=== PATIENT | female | born 1985 | race Caucasian/White ===

== ENCOUNTER 2018-02-22 13:52 | Emergency (ER) | payer MEDICAID ==
[~2018-02-22] VITALS: Ht 172.7 cm; Wt 97.7 kg
[~2018-02-22 13:52] MED LIST: HYDR-4383 PO
[2018-02-22 13:57] VITALS: BP 116/75
[2018-02-22] MEDS ORDERED: ketorolac trometh inj. 60 MG/2 ML VIAL IM ONE (15:25)
[2018-02-22] MEDS ORDERED: ACET1TAB12 PO (16:22)
== END 2018-02-22 16:32 | disposition home or self-care (01) ==
LOC: ER 13:53
DX: R51 Headache (principal); Z56.0 Unemployment, unspecified; Z88.0 Allergy status to penicillin
CPT/HCPCS: 96372; 99283; J1885

== ENCOUNTER 2018-07-27 05:58 | Day surgery (SDC) | payer MEDICAID ==
[2018-07-24 11:56] LABS: BASOPHILS # (AUTO) 0.1 X10'3 (0-0.2); BASOPHILS % (AUTO) 0.5 % (0-1); EOSINOPHILS # (AUTO) 0.1 X10'3 (0-0.9); EOSINOPHILS % (AUTO) 0.8 % (0-6); LYMPHOCYTES # (AUTO) 3.7 X10'3 (1.1-4.8); LYMPHOCYTES % (AUTO) 28.5 % (21-51); MEAN CORPUSCULAR HEMOGLOBIN 30.9 PG (27.0-31.0); MEAN CORPUSCULAR HGB CONC 34.1 g/dL (33.0-36.5); MEAN CORPUSCULAR VOLUME 90.5 FL (78-98); MEAN PLATELET VOLUME 8.1 FL (7.4-10.4); MONOCYTES # (AUTO) 0.7 X10'3 (0-0.9); MONOCYTES % (AUTO) 5.5 % (2-12); NEUTROPHILS # (AUTO) 8.3 X10'3 (1.8-7.7); NEUTROPHILS % (AUTO) 64.7 % (42-75); PRE OP HEMATOCRIT 44.1 % (35.0-45.0); PRE OP PLATELET COUNT 312 X10'3 (140-440); RED BLOOD COUNT 4.87 X10'6 (4.20-5.60); RED CELL DISTRIBUTION WIDTH 13.6 % (11.5-14.5)
[2018-07-24 11:58] LABS: HCG SERUM QL NEGATIVE
[2018-07-24 12:00] LABS: ALBUMIN 4.1 G/DL (3.4-5.0); ALBUMIN/GLOBULIN RATIO 1.1 (1.1-1.5); ALKALINE PHOSPHATASE 62 IU/L (46-116); BLOOD UREA NITROGEN 13 MG/DL (7-18); BUN/CREATININE RATIO 13.5 (6.6-38.0); CALCIUM 9.2 MG/DL (8.5-10.1); CHLORIDE 105 MMOL/L (99-107); CREATININE 0.96 MG/DL (0.40-0.90); PRE OP ALT 31 U/L (30-65); PRE OP ANION GAP 8 (8-16); PRE OP AST 33 U/L (10-37); PRE OP BILIRUB, TOTAL 0.4 MG/DL (0.0-1.0); PRE OP GLUCOSE 102 MG/DL (70-104); PRE OP POTASSIUM 3.6 MMOL/L (3.4-5.1); PRE OP SODIUM 138 MMOL/L (135-145); TOTAL CARBON DIOXIDE 24.9 MMOL/L (24-32); TOTAL PROTEIN 7.8 G/DL (6.4-8.2); eGFR 66 ML/MIN
[~2018-07-27] VITALS: Ht 172.7 cm; Wt 103.0 kg
[~2018-07-27 05:58] MED LIST changes: -HYDR-4383 PO; +MEDR150V IM; +albuterol 2.5 MG/3 ML nebule NEB ONE; +famotidine 20mg tablet PO ONE; +ringers solution, lacted 1,000 ML IV SCH
[2018-07-27 06:00] VITALS: BP 116/69
[2018-07-27] MEDS ORDERED: fentaNYL/PF 50MCG/1 ML 2ML syringe ONE (07:24)
[2018-07-27] MEDS ORDERED: midazolam 2 mg/2 ml injection ONE (07:25)
[2018-07-27] MEDS ORDERED: propofol inj 20 ML IV ONE (07:25)
[2018-07-27] MEDS ORDERED: LIDOcaine 2% (20mg/ml) 5ml vial ONE (07:25)
[2018-07-27] MEDS ORDERED: rocuronium 10mg/ml inj IV ONE (07:25)
[2018-07-27] MEDS ORDERED: ringers solution, lacted 1,000 ML IV SCH (07:44)
[2018-07-27] MEDS ORDERED: proCHLORperazine 10 MG/2 ml inj IV PRN (07:45)
[2018-07-27] MEDS ORDERED: meperidine/PF 25mg/ml syringe IV PRN ×3 (07:45)
[2018-07-27] MEDS ORDERED: morphine 4 MG/ML inj SYRINge IV PRN ×2 (07:45)
[2018-07-27] MEDS ORDERED: ondansetron/PF 4mg/2ml inj IV PRN (07:45)
[2018-07-27] MEDS ORDERED: sevoflurane 250ml liquid IH ONE (08:37)
[2018-07-27] MEDS ORDERED: neostigmine methylsulfate 1 MG/ML 10ml vial ONE (08:51)
[2018-07-27] MEDS ORDERED: dexamethasone sod phosphate 4mg/ml inj. ONE (08:51)
[2018-07-27] MEDS ORDERED: ondansetron/PF 4mg/2ml inj ONE (08:51)
[2018-07-27] MEDS ORDERED: glycopyrrolate 0.2mg/ml inj ONE (08:51)
[2018-07-27 09:20] VITALS: BP 98/70
[2018-07-27] MEDS ORDERED: esmolol inj. 10 ML IV ONE (09:20)
[2018-07-27] MEDS ORDERED: metoprolol tartrate 1mg/ml inj IV ONE (09:20)
--- NOTE | 2018-07-27 09:20 | NUR ---
Received from OR via [facility] , accompanied by Anesthesiologist ANDREW and report given by Anesthesiolgist. PATIENT WITH VSS. DENIES PAIN. ONE UMBILICAL BANDAID PRESENT AND A BETO PAD IN PLACE. NO DRAINAGE TO EITHER. 20G PIV IN RIGHT HAND AND RUNNING LR AT 100. 10L MASK ON WITH 97% SATURATIONS. Addendum: 07/27/18 at 0964 by Aman Taylor RN, RN Amended: Links added.
[2018-07-27 09:30] VITALS: BP 104/41
[2018-07-27 09:40] VITALS: BP 92/52
[2018-07-27 09:50] VITALS: BP 93/68
[2018-07-27 10:00] VITALS: BP 106/67
--- NOTE | 2018-07-27 10:27 | NUR ---
PATIENT A&OX4, DENIES PAIN, V/S WNL, NEUROVASCULAR CHECKS INTACT, 20G PIV LUE D/C WITH NO COMPLICATIONS OBSERVED, SCD OFF, 1 BANDAID TO LAP SIGHTS OF ABDOMEN CDI.. I HAVE REVIEWED D/C INSTRUCTIONS WITH PATIENT AND FAMILY AND THEY HAVE VERBALIZED UNDERSTANDING. PATIENT D/C HOME WITH FAMILY TO TRANSPORT AND ALL BELONGINGS.. Addendum: 07/27/18 at 1032 by Aman Taylor RN, RN Amended: Links added.
== END 2018-07-27 10:10 | disposition home or self-care (01) ==
LOC: PAS 05:58
PROVIDERS: ATTEND Obstetrics & Gynecology
DX: Z30.2 Encounter for sterilization (principal); F17.210 Nicotine dependence, cigarettes, uncomplicated; Z88.0 Allergy status to penicillin; Z98.890 Other specified postprocedural states
CPT/HCPCS: 36415; 58670; 80053; 82948; 84703; 85025; J1100; J2001; J2175; J2250; J2405; J2704; J2710; J3010; A7000; J3490; J7120

== ENCOUNTER 2018-09-28 20:40 | Emergency (ER) | payer MEDICAID ==
[~2018-09-28] VITALS: Ht 172.7 cm; Wt 99.0 kg
[~2018-09-28 20:40] MED LIST changes: -albuterol 2.5 MG/3 ML nebule NEB ONE; -famotidine 20mg tablet PO ONE; -ringers solution, lacted 1,000 ML IV SCH
[2018-09-28 20:47] VITALS: BP 128/76
[2018-09-28] MEDS ORDERED: IBUP-1984 PO (22:23)
== END 2018-09-28 22:40 | disposition home or self-care (01) ==
LOC: ER 20:41
DX: M26.622 Arthralgia of left temporomandibular joint (principal); H92.02 Otalgia, left ear; Z56.0 Unemployment, unspecified; Z88.0 Allergy status to penicillin; Z88.6 Allergy status to analgesic agent
CPT/HCPCS: 99282

== ENCOUNTER 2019-01-19 23:42 | Emergency (ER) | payer MEDICAID ==
[~2019-01-19] VITALS: Ht 172.7 cm; Wt 100.0 kg
[2019-01-20 00:08] VITALS: BP 121/62
[2019-01-20] MEDS ORDERED: ACET-3067 PO (01:26)
[2019-01-20] MEDS ORDERED: HYDROcodone/acetaminophen 5mg/325mg tablet PO ONE (01:30)
== END 2019-01-20 01:53 | disposition home or self-care (01) ==
LOC: ER 23:43
DX: S60.221A Contusion of right hand, initial encounter (principal); Z56.0 Unemployment, unspecified; Z88.6 Allergy status to analgesic agent; Z88.0 Allergy status to penicillin; F17.210 Nicotine dependence, cigarettes, uncomplicated; W50.0XXA Accidental hit or strike by another person, initial encounter; Y93.89 Activity, other specified; Y92.89 Other specified places as the place of occurrence of the external cause; Y99.8 Other external cause status
CPT/HCPCS: 73130; 99283

== ENCOUNTER 2019-09-16 22:22 | Emergency (ER) | payer MEDICAID ==
[~2019-09-16] VITALS: Ht 175.3 cm; Wt 100.0 kg
[2019-09-16 22:54] LABS: BASOPHILS # (AUTO) 0.1 X10'3 (0-0.2); EOSINOPHILS # (AUTO) 0.2 X10'3 (0-0.9); EOSINOPHILS % (AUTO) 1.3 % (0-6); MONOCYTES # (AUTO) 0.7 X10'3 (0-0.9); RED BLOOD COUNT 4.54 X10'6 (4.20-5.60); WHITE BLOOD COUNT 12.6 X10'3 (4.5-11.0)
[2019-09-16 22:55] LABS: BASOPHILS % (AUTO) 0.5 % (0-1); HEMATOCRIT 42.4 % (35.0-45.0); HEMOGLOBIN 14.6 g/dl (12.0-16.0); LYMPHOCYTES % (AUTO) 47.6 % (21-51); MEAN CORPUSCULAR HEMOGLOBIN 32.2 PG (27.0-31.0); MEAN CORPUSCULAR HGB CONC 34.4 g/dL (33.0-36.5); MEAN CORPUSCULAR VOLUME 93.4 FL (78-98); MONOCYTES % (AUTO) 5.8 % (2-12); NEUTROPHILS # (AUTO) 5.6 X10'3 (1.8-7.7); NEUTROPHILS % (AUTO) 44.8 % (42-75); PLATELET COUNT 303 X10'3 (140-440); RED CELL DISTRIBUTION WIDTH 13.6 % (11.5-14.5)
[2019-09-16 23:29] LABS: ALBUMIN 3.7 G/DL (3.4-5.0); ALBUMIN/GLOBULIN RATIO 1.1 (1.1-1.5); ALKALINE PHOSPHATASE 64 IU/L (46-116); ANION GAP 14 (8-16); BILIRUBIN,TOTAL 0.2 MG/DL (0.1-1.0); BLOOD UREA NITROGEN 9 MG/DL (7-18); BUN/CREATININE RATIO 10.2 (6.6-38.0); CALCIUM 8.5 MG/DL (8.5-10.1); CHLORIDE 107 MMOL/L (99-107); CREATININE 0.88 MG/DL (0.40-0.90); LIPASE 209 U/L (73-393); SODIUM 142 MMOL/L (135-145); TOTAL CARBON DIOXIDE 20.8 MMOL/L (24-32); TOTAL PROTEIN 7.2 G/DL (6.4-8.2); eGFR 73 ML/MIN
[2019-09-16 23:37] LABS: GLUCOSE 114 MG/DL (70-104); POTASSIUM 3.4 MMOL/L (3.5-5.1)
[2019-09-16 23:51] LABS: ALANINE AMINOTRANSFERASE 15 U/L (12-78); ASPARTATE AMINO TRANSFERASE 44 U/L (10-37)
[2019-09-16 23:58] LABS: CLARITY,URINE CLEAR (Clear); COLOR,URINE STRAW (Yellow); GLUCOSE, URINE NEGATIVE (Neg); KETONES,URINE NEGATIVE (Neg); LEUKOCYTE ESTERASE ,URINE NEGATIVE (Neg); NITRITES, URINE NEGATIVE (Neg); OCCULT BLOOD,URINE TRACE-INTACT (Neg); PROTEIN,URINE NEGATIVE (Neg); URINE HCG NEGATIVE (NEG); UROBILINOGEN,URINE 0.2 E.U/dL (0.2-1.0)
[2019-09-17 00:03] LABS: UA COLLECTION TYPE CLN CATCH MIDSTREAM
[2019-09-17 00:05] LABS: BACTERIA,URINE NONE SEEN /HPF (Neg); RBC,URINE NONE SEEN /HPF (0-2); SQUAMOUS EPITHELIAL CELL,UR FEW /LPF (FEW); WBC,URINE 0-4 /HPF (0-4)
[2019-09-17 00:06] LABS: SPERM FEW /HPF
[2019-09-17] MEDS ORDERED: normal saline 1000ML IV soln IVB ONE (00:35)
[2019-09-17] MEDS ORDERED: iohexol 300mg/ml 100ml inj. ONE (00:40)
[2019-09-17] MEDS ORDERED: magnesium oxide 400mg tablet PO ONE (00:40)
[2019-09-17] MEDS ORDERED: potassium Cl 20 mEq SR tablet PO ONE (00:40)
[2019-09-17 01:09] LABS: MAGNESIUM 2.1 MG/DL (1.5-2.4)
[2019-09-17] MEDS ORDERED: metroNIDAZOLE 500mg tablet PO ONE (01:15)
[2019-09-17] MEDS ORDERED: ciprofloxacin 250mg tablet PO ONE (01:15)
[2019-09-17] MEDS ORDERED: LACT1CAP60 PO (01:32)
[2019-09-17] MEDS ORDERED: CIPR-230 PO (01:32)
[2019-09-17] MEDS ORDERED: METR-159 PO (01:32)
[2019-09-17] MEDS ORDERED: ciprofloxacin 250mg tablet PO STA (01:32)
[2019-09-17 02:04] VITALS: BP 112/89
== END 2019-09-17 02:13 | disposition home or self-care (01) ==
LOC: ER 22:22
DX: K52.9 Noninfective gastroenteritis and colitis, unspecified (principal); E87.6 Hypokalemia; R10.12 Left upper quadrant pain; Z72.89 Other problems related to lifestyle; Z88.6 Allergy status to analgesic agent; Z88.0 Allergy status to penicillin; Z79.2 Long term (current) use of antibiotics; Z79.899 Other long term (current) drug therapy
CPT/HCPCS: 36415; 74177; 80053; 81001; 81025; 83690; 83735; 85025; 96360; 99284; J7030; Q9967; 81003; 96361; 99285; J3490

== ENCOUNTER 2019-10-16 21:03 | Emergency (ER) | payer MEDICAID ==
[~2019-10-16] VITALS: Ht 172.7 cm; Wt 100.0 kg
[~2019-10-16 21:03] MED LIST changes: +CIPR-230 PO; +LACT1CAP60 PO
[2019-10-16 22:04] LABS: BASOPHILS # (AUTO) 0.1 X10'3 (0-0.2); BASOPHILS % (AUTO) 0.6 % (0-1); EOSINOPHILS # (AUTO) 0.1 X10'3 (0-0.9); EOSINOPHILS % (AUTO) 1.2 % (0-6); HEMATOCRIT 40.8 % (35.0-45.0); LYMPHOCYTES # (AUTO) 3.8 X10'3 (1.1-4.8); MEAN CORPUSCULAR HEMOGLOBIN 31.4 PG (27.0-31.0); MEAN CORPUSCULAR HGB CONC 34.2 g/dL (33.0-36.5); MEAN PLATELET VOLUME 8.2 FL (7.4-10.4); MONOCYTES # (AUTO) 0.8 X10'3 (0-0.9); MONOCYTES % (AUTO) 7.5 % (2-12); NEUTROPHILS # (AUTO) 6.1 X10'3 (1.8-7.7); NEUTROPHILS % (AUTO) 55.7 % (42-75); PLATELET COUNT 259 X10'3 (140-440); RED BLOOD COUNT 4.44 X10'6 (4.20-5.60); RED CELL DISTRIBUTION WIDTH 13.3 % (11.5-14.5)
[2019-10-16 22:19] LABS: ALANINE AMINOTRANSFERASE 22 U/L (12-78); ALBUMIN 3.6 G/DL (3.4-5.0); ALBUMIN/GLOBULIN RATIO 1.1 (1.1-1.5); ALKALINE PHOSPHATASE 55 IU/L (46-116); ANION GAP 15 (8-16); ASPARTATE AMINO TRANSFERASE 29 U/L (10-37); BILIRUBIN,TOTAL 0.3 MG/DL (0.1-1.0); BLOOD UREA NITROGEN 9 MG/DL (7-18); BUN/CREATININE RATIO 10.5 (6.6-38.0); CALCIUM 8.6 MG/DL (8.5-10.1); CHLORIDE 107 MMOL/L (99-107); CREATININE 0.86 MG/DL (0.40-0.90); GLUCOSE 93 MG/DL (70-104); LIPASE 237 U/L (73-393); POTASSIUM 3.1 MMOL/L (3.5-5.1); SODIUM 142 MMOL/L (135-145); TOTAL CARBON DIOXIDE 20.2 MMOL/L (24-32); eGFR 75 ML/MIN
[2019-10-16] MEDS ORDERED: sucralfate 1gm/10ml UD suspension PO STA (22:46)
[2019-10-16] MEDS ORDERED: mag hydrox/Alum hydrox/simeth 30ml oral suspension PO ONE (22:50)
[2019-10-16] MEDS ORDERED: LIDOcaine Viscous 15ml cup MM ONE (22:50)
[2019-10-16] MEDS ORDERED: ONDA4TAB6 PO (22:58)
[2019-10-16 23:11] VITALS: BP 121/76
== END 2019-10-16 23:14 | disposition home or self-care (01) ==
LOC: ER 21:03
DX: R11.2 Nausea with vomiting, unspecified (principal); K22.6 Gastro-esophageal laceration-hemorrhage syndrome; G89.29 Other chronic pain; Z79.2 Long term (current) use of antibiotics; Z79.899 Other long term (current) drug therapy
CPT/HCPCS: 36415; 80053; 83690; 85025; 99284

== ENCOUNTER 2021-05-09 18:41 | Emergency (ER) | payer MEDICAID ==
[~2021-05-09] VITALS: Ht 172.7 cm; Wt 90.0 kg
[2021-05-09 18:41] VITALS: BP 140/102
[~2021-05-09 18:41] MED LIST changes: -CIPR-230 PO; +ONDA4TAB6 PO
[2021-05-09] MEDS ORDERED: ALBU18HF2 INH (19:16)
--- NOTE | 2021-05-09 20:20 | NUR ---
Pt given and understands d/c instructions. Ambulatory with a steady gait.
== END 2021-05-09 20:20 | disposition home or self-care (01) ==
LOC: ER 18:41
DX: U07.1 COVID-19 (principal); R10.84 Generalized abdominal pain; R50.9 Fever, unspecified; R09.89 Other specified symptoms and signs involving the circulatory and respiratory systems; R19.7 Diarrhea, unspecified; F17.200 Nicotine dependence, unspecified, uncomplicated; Z72.89 Other problems related to lifestyle; Z79.899 Other long term (current) drug therapy
CPT/HCPCS: 87635; 99283; C9803

== ENCOUNTER 2022-09-13 19:52 | Inpatient (IN) | payer MEDICAID ==
[~2022-09-13] VITALS: Ht 172.7 cm; Wt 104.5 kg
[~2022-09-13 19:52] MED LIST changes: +ALBU18HF2 INH
[2022-09-13 20:47] LABS: BASOPHILS # (AUTO) 0.1 X10'3 (0-0.2); EOSINOPHILS # (AUTO) 0.1 X10'3 (0-0.9); HEMATOCRIT 49.2 % (35.0-45.0); WHITE BLOOD COUNT 19.3 X10'3 (4.5-11.0)
[2022-09-13 20:48] LABS: BASOPHILS % (AUTO) 0.4 % (0-1); EOSINOPHILS % (AUTO) 0.4 % (0-6); LYMPHOCYTES # (AUTO) 2.9 X10'3 (1.1-4.8); MEAN CORPUSCULAR HEMOGLOBIN 34.5 PG (27.0-31.0); MEAN CORPUSCULAR HGB CONC 34.5 g/dL (33.0-36.5); MEAN PLATELET VOLUME 7.9 FL (7.4-10.4); MONOCYTES # (AUTO) 1.4 X10'3 (0-0.9); MONOCYTES % (AUTO) 7.1 % (2-12); NEUTROPHILS # (AUTO) 14.9 X10'3 (1.8-7.7); NEUTROPHILS % (AUTO) 77.1 % (42-75); PLATELET COUNT 289 X10'3 (140-440); RED BLOOD COUNT 4.93 X10'6 (4.20-5.60); RED CELL DISTRIBUTION WIDTH 14.7 % (11.5-14.5)
[2022-09-13 20:51] LABS: CLARITY,URINE SLIGHTLY CLOUDY (Clear); GLUCOSE, URINE NEGATIVE (Neg); KETONES,URINE TRACE mg/dl (Neg); LEUKOCYTE ESTERASE ,URINE NEGATIVE (Neg); NITRITES, URINE NEGATIVE (Neg); OCCULT BLOOD,URINE LARGE (Neg); PROTEIN,URINE TRACE mg/dl (Neg); URINE HCG NEGATIVE (NEG)
[2022-09-13 20:56] LABS: COLOR,URINE DARK YELLOW (Yellow); UA COLLECTION TYPE CLN CATCH MIDSTREAM
[2022-09-13 20:59] LABS: ALANINE AMINOTRANSFERASE 47 U/L (12-78); ALBUMIN 3.7 G/DL (3.4-5.0); ALBUMIN/GLOBULIN RATIO 0.9 (1.1-1.5); ALKALINE PHOSPHATASE 85 IU/L (46-116); ANION GAP 8 (8-16); ASPARTATE AMINO TRANSFERASE 59 U/L (10-37); BILIRUBIN,TOTAL 1.2 MG/DL (0.1-1.0); BLOOD UREA NITROGEN 7 MG/DL (7-18); BUN/CREATININE RATIO 7.7 (10.0-20.0); CHLORIDE 102 MMOL/L (99-107); CREATININE 0.91 MG/DL (0.40-0.90); GLUCOSE 130 MG/DL (70-104); LIPASE 76 U/L (73-393); POTASSIUM 3.8 MMOL/L (3.5-5.1); SODIUM 134 MMOL/L (135-145); TOTAL CARBON DIOXIDE 24.5 MMOL/L (24-32); TOTAL PROTEIN 7.6 G/DL (6.4-8.2); eGFR 69 ML/MIN
[2022-09-13 21:00] LABS: WBC,URINE 0-4 /HPF (0-4)
[2022-09-13 21:03] LABS: BACTERIA,URINE 2+ /HPF (Neg); RBC,URINE 50-100 /HPF (0-2); SQUAMOUS EPITHELIAL CELL,UR MANY /LPF (FEW)
[2022-09-13 21:04] LABS: MUCUS STRANDS FEW /LPF (Neg); TRANSITIONAL EPI CELLS,URINE FEW /HPF
[2022-09-13] MEDS ORDERED: iohexol 300mg/ml 100ml inj. ONE (23:13)
[2022-09-14] MEDS ORDERED: acetaminophen 1,000mg/100ml IV 100 ML IV STA (02:23)
[2022-09-14] MEDS ORDERED: ondansetron/PF 4mg/2ml inj IV ONE (02:25)
[2022-09-14] MEDS ORDERED: metroNIDAZOLE-Flagyl 500mg/NS 100 ML IV ONE (04:00)
[2022-09-14] MEDS ORDERED: nicotine 14mg patch - 24hr TD ONE (04:05)
[2022-09-14] MEDS ORDERED: NO HOME MEDS (04:36)
[2022-09-14] MEDS ORDERED: morphine 2 MG/ML inj. syringe IV PRN (04:55)
[2022-09-14] MEDS ORDERED: magnesium Cl slow-release 64mg tablet PO PRN (04:55)
[2022-09-14] MEDS ORDERED: ondansetron/PF 4mg/2ml inj IV PRN (04:55)
[2022-09-14] MEDS ORDERED: potassium Cl 40MEQ/1/2NS 520ml 520 ML IV PRN (04:55)
[2022-09-14] MEDS ORDERED: magnesium hydroxide 30ml (MOM) UD suspension PO PRN (04:55)
[2022-09-14] MEDS ORDERED: magnesium 4gm in 100ml NS 100 ML IV PRN (04:55)
[2022-09-14] MEDS ORDERED: mag hydrox/Alum hydrox/simeth 30ml oral suspension PO PRN (04:55)
[2022-09-14] MEDS ORDERED: magnesium 2GM in 50ml NS 50 ML IV PRN (04:55)
[2022-09-14] MEDS ORDERED: potassium Cl 20 mEq SR tablet PO PRN (04:55)
[2022-09-14] MEDS ORDERED: LORazepam 1 MG tablet PO PRN (05:00)
[2022-09-14] MEDS ORDERED: LORazepam 2 mg/ml vial IV PRN (05:00)
[2022-09-14] MEDS: normal saline 1000ml 1,000 ML IV SCH ×2 (05:10→16:09)
[2022-09-14] MEDS ORDERED: ciprofloxacin lact 400MG/200ML 200 ML IV SCH (08:00)
[2022-09-14] MEDS: K and/or MAG REPLACEMENT MC SCH ×2 (08:00→20:00)
[2022-09-14] MEDS: docusate sod 100mg capsule PO SCH ×2 (08:00→20:00)
[2022-09-14 08:06] LABS: MAGNESIUM 2.1 MG/DL (1.5-2.4); POTASSIUM 3.1 MMOL/L (3.5-5.1)
[2022-09-14] MEDS: potassium Cl 20 mEq SR tablet PO PRN ×3 (08:28→19:42)
[2022-09-14] MEDS: heparin, porcine 5000 units/ml vial SQ SCH ×2 (08:30→19:44)
[2022-09-14 09:06] LABS: BASOPHILS % (AUTO) 0.3 % (0-1); EOSINOPHILS # (AUTO) 0.1 X10'3 (0-0.9); EOSINOPHILS % (AUTO) 0.5 % (0-6); HEMATOCRIT 47.9 % (35.0-45.0); HEMOGLOBIN 16.3 g/dl (12.0-16.0); LYMPHOCYTES # (AUTO) 3.1 X10'3 (1.1-4.8); LYMPHOCYTES % (AUTO) 18.3 % (21-51); MEAN CORPUSCULAR HEMOGLOBIN 34.7 PG (27.0-31.0); MEAN CORPUSCULAR HGB CONC 34.1 g/dL (33.0-36.5); MEAN CORPUSCULAR VOLUME 101.5 FL (78-98); MEAN PLATELET VOLUME 8.5 FL (7.4-10.4); MONOCYTES % (AUTO) 6.1 % (2-12); NEUTROPHILS # (AUTO) 12.7 X10'3 (1.8-7.7); NEUTROPHILS % (AUTO) 74.8 % (42-75); PLATELET COUNT 240 X10'3 (140-440); RED BLOOD COUNT 4.72 X10'6 (4.20-5.60); RED CELL DISTRIBUTION WIDTH 14.4 % (11.5-14.5)
[2022-09-14] MEDS: ciprofloxacin lact 400MG/200ML 200 ML IV SCH ×2 (09:42→19:40)
--- NOTE | 2022-09-14 12:00 | NUR ---
REPORT GIVEN TO RN PIEDAD, PT GOING TO ROOM 1693S
[2022-09-14] MEDS: metroNIDAZOLE-Flagyl 500mg/NS 100 ML IV SCH ×3 (12:42→23:50)
[2022-09-14 12:45] VITALS: BP 116/67
[2022-09-14 15:00] VITALS: BP 137/87
[2022-09-14] MEDS: acetaminophen 325mg tablet PO PRN ×2 (15:56→23:56)
[2022-09-14 19:00] VITALS: BP 137/78
[2022-09-15] VITALS: BP 134/82
[2022-09-15] MEDS: normal saline 1000ml 1,000 ML IV SCH ×2 (03:23→10:55)
[2022-09-15 06:00] VITALS: BP 134/74
--- NOTE | 2022-09-15 06:38 | NUR ---
patient c/o abdominal pain early in shift medicated x2 with tylenol, with good effect. Up ad Thong in room. Slept alot of shift. report given to Shelbie SNOWDEN
--- NOTE | 2022-09-15 06:55 | NUR ---
Patient in room PCU 3023. I have received report from ISI Oneil and had the opportunity to ask questions and assume patient care.
[2022-09-15] MEDS: docusate sod 100mg capsule PO SCH (07:28)
[2022-09-15] MEDS: heparin, porcine 5000 units/ml vial SQ SCH (07:28)
[2022-09-15] MEDS: ciprofloxacin lact 400MG/200ML 200 ML IV SCH (07:42)
[2022-09-15 07:43] LABS: BASOPHILS % (AUTO) 0.3 % (0-1); EOSINOPHILS # (AUTO) 0.1 X10'3 (0-0.9); EOSINOPHILS % (AUTO) 0.6 % (0-6); HEMOGLOBIN 14.9 g/dl (12.0-16.0); LYMPHOCYTES # (AUTO) 1.9 X10'3 (1.1-4.8); LYMPHOCYTES % (AUTO) 13.6 % (21-51); MEAN CORPUSCULAR HEMOGLOBIN 34.2 PG (27.0-31.0); MEAN CORPUSCULAR HGB CONC 33.8 g/dL (33.0-36.5); MEAN CORPUSCULAR VOLUME 101.2 FL (78-98); MEAN PLATELET VOLUME 8.4 FL (7.4-10.4); MONOCYTES # (AUTO) 1.1 X10'3 (0-0.9); MONOCYTES % (AUTO) 8.1 % (2-12); NEUTROPHILS # (AUTO) 10.7 X10'3 (1.8-7.7); NEUTROPHILS % (AUTO) 77.4 % (42-75); PLATELET COUNT 235 X10'3 (140-440); RED BLOOD COUNT 4.35 X10'6 (4.20-5.60); RED CELL DISTRIBUTION WIDTH 14.9 % (11.5-14.5); WHITE BLOOD COUNT 13.8 X10'3 (4.5-11.0)
[2022-09-15 07:58] LABS: ALANINE AMINOTRANSFERASE 84 U/L (12-78); ALBUMIN 2.7 G/DL (3.4-5.0); ALBUMIN/GLOBULIN RATIO 0.8 (1.1-1.5); ALKALINE PHOSPHATASE 76 IU/L (46-116); ANION GAP 8 (8-16); ASPARTATE AMINO TRANSFERASE 86 U/L (10-37); BLOOD UREA NITROGEN 5 MG/DL (7-18); BUN/CREATININE RATIO 6.8 (10.0-20.0); CALCIUM 8.6 MG/DL (8.5-10.1); CHLORIDE 106 MMOL/L (99-107); CREATININE 0.74 MG/DL (0.40-0.90); GLUCOSE 103 MG/DL (70-104); MAGNESIUM 2.3 MG/DL (1.5-2.4); SODIUM 138 MMOL/L (135-145); TOTAL CARBON DIOXIDE 24.4 MMOL/L (24-32); TOTAL PROTEIN 6.3 G/DL (6.4-8.2); eGFR 87 ML/MIN
[2022-09-15] MEDS: K and/or MAG REPLACEMENT MC SCH (08:05)
[2022-09-15] MEDS: metroNIDAZOLE-Flagyl 500mg/NS 100 ML IV SCH (10:30)
[2022-09-15 11:00] VITALS: BP 128/85
[2022-09-15] MEDS ORDERED: CIPR-202 PO (12:12)
[2022-09-15] MEDS ORDERED: METR-159 PO (12:12)
[2022-09-15 13:51] LABS: HBSAG SCREEN Negative (Negative); HEP B CORE AB, TOT Negative (Negative)
--- NOTE | 2022-09-15 13:58 | NUR ---
PAGER ID: [phone] MESSAGE: Rasheeda Gudino [id number]. Patient tolerated lunch fine, sending her home. thank you, Jahaira [phone].
--- NOTE | 2022-09-15 14:59 | NUR ---
PAGER ID: [phone] MESSAGE: Rasheeda Gudino [id number]. Pt requesting work release. Can I bring it over to be signed? Thank you, Jahaira [phone].
--- NOTE | 2022-09-15 15:37 | NUR ---
Patient stable and appropriate for discharge. All discharge instructions given to patient, verbalized understanding. IV removed, canula intact. Patient was given work release note with discharge information. Patient accompanied to lobby by family members and taken home in private vehicle.
[2022-09-18] MEDS ORDERED: thiamine 100mg tablet PO SCH (08:00)
== END 2022-09-15 14:50 | disposition home or self-care (01) | DRG 244 ==
LOC: ER 19:52 → ED HOLD 09-14 04:58 → PCU 3S 09-14 12:20
PROVIDERS: ADMIT Internal Medicine; ATTEND Family Medicine
PROC: BW211ZZ Computerized Tomography (CT Scan) of Abdomen and Pelvis using Low Osmolar Contrast (ICD-10-PCS; principal; 2022-09-14)
DX: K57.20 Diverticulitis of large intestine with perforation and abscess without bleeding (principal); F17.200 Nicotine dependence, unspecified, uncomplicated; Z86.16 Personal history of COVID-19; Z98.51 Tubal ligation status
CPT/HCPCS: 36415; 74177; 80053; 81001; 81025; 83690; 83735; 84132; 85025; 86704; 86705; 86706; 87081; 87340; 99285; G0378; J0131; J0744; J1644; J2270; J2405; J3490; J7030; Q9967

== ENCOUNTER 2023-09-04 13:09 | Emergency (ER) | payer MEDICAID ==
[~2023-09-04] VITALS: Ht 172.7 cm; Wt 106.9 kg
[2023-09-04 13:11] VITALS: TEMP 97.5
[2023-09-04 14:11] LABS: BASOPHILS % (AUTO) 0.3 % (0-1); EOSINOPHILS # (AUTO) 0.1 X10'3 (0-0.9); HEMOGLOBIN 14.6 g/dl (12.0-16.0); LYMPHOCYTES # (AUTO) 4.1 X10'3 (1.1-4.8); LYMPHOCYTES % (AUTO) 31.9 % (21-51); MEAN CORPUSCULAR HEMOGLOBIN 29.9 PG (27.0-31.0); MEAN CORPUSCULAR HGB CONC 33.2 g/dL (33.0-36.5); MEAN CORPUSCULAR VOLUME 90.1 FL (78-98); MEAN PLATELET VOLUME 8.1 FL (7.4-10.4); MONOCYTES # (AUTO) 0.7 X10'3 (0-0.9); MONOCYTES % (AUTO) 5.4 % (2-12); NEUTROPHILS % (AUTO) 61.4 % (42-75); PLATELET COUNT 363 X10'3 (140-440); RED BLOOD COUNT 4.88 X10'6 (4.20-5.60); RED CELL DISTRIBUTION WIDTH 13.4 % (11.5-14.5)
[2023-09-04 14:25] LABS: ALBUMIN 3.8 G/DL (3.4-5.0); ANION GAP 8 (8-16); BLOOD UREA NITROGEN 10 MG/DL (7-18); BUN/CREATININE RATIO 12.2 (10.0-20.0); CALCIUM 8.6 MG/DL (8.5-10.1); CHLORIDE 103 MMOL/L (99-107); CREATININE 0.82 MG/DL (0.40-0.90); GLUCOSE 133 MG/DL (70-104); POTASSIUM 3.8 MMOL/L (3.5-5.1); PRO BRAIN NATRIURETIC PEPTIDE 45 PG/ML (0-125); SODIUM 137 MMOL/L (135-145); eCRCL 92 ML/MIN; eGFR 77 ML/MIN
[2023-09-04 17:38] VITALS: RESP 16
[2023-09-04 18:43] VITALS: BP 98/55; PULSE 70; O2SAT 99
== END 2023-09-04 18:45 | disposition home or self-care (01) ==
LOC: ER 13:09
DX: R55 Syncope and collapse (principal); R51.9 Headache, unspecified
CPT/HCPCS: 36415; 70450; 71045; 80048; 83880; 84484; 85025; 93005; 99284; 99285

== ENCOUNTER → 2023-09-29 | Outpatient (CLI) | payer MEDICAID | END | disposition home or self-care (01) | LOC: CARD DIAG 11:30 | PROVIDERS: ATTEND Family Medicine | DX: I08.0 Rheumatic disorders of both mitral and aortic valves (principal); R56.9 Unspecified convulsions | CPT/HCPCS: 93306 ==

== ENCOUNTER 2023-10-25 08:47 | Outpatient (CLI) | payer MEDICAID | END 2023-10-25 23:59 | disposition home or self-care (01) | LOC: RAD 08:47 | PROVIDERS: ATTEND Physician Assistant | DX: N28.1 Cyst of kidney, acquired (principal); R16.1 Splenomegaly, not elsewhere classified; K76.0 Fatty (change of) liver, not elsewhere classified; R10.31 Right lower quadrant pain | CPT/HCPCS: 76700; 76705 ==

== ENCOUNTER 2025-01-19 17:47 | Emergency (ER) | payer MEDICAID ==
[~2025-01-19] VITALS: Ht 172.7 cm; Wt 96.1 kg
--- NOTE | 2025-01-19 17:57 | Physician Documentation ---
History of Present Illness ~ Chief Complaint: Bite-insect Stated Complaint: BITE INSECT Time Seen by MD: 18:21 Primary Medical Doctor: SARABJIT CARROLL [facility] 39-year-old female presents with painful left neck redness and swelling surrounding possible spider bite. She notes that the pain radiates up into the left ear. She denies any chills or fever, nausea or vomiting, body aches. Tetanus within 5 years?: No Medication Reconciliation Allergies: Coded Allergies: Penicillins (Unverified Allergy, Severe, HIVES, 09/04/23) Past Medical History Past Medical History: No Pertinent History Past Surgical History: noncontributory Alcohol Use: Heavy Drug Use: none Lives with: S/O, Family Lives In: Home Occupation: employed Review of Systems ROS As stated above in the HPI, otherwise all systems are reviewed and negative. Physical Exam Vital Signs: Temperature: 98.2, Source: Oral, Heart Rate: 80, Respiratory Rate: 16, BP: 125/71, Pulse Oximetry: 95, Weight: 96.100 Oxygen Flow Rate: 0 Physical Exam General: Alert, no apparent distress. HEENT: PERRL, EOMI, no injection, moist mucous membranes. Uvula posterior midline. Airway patent. Neck: Full range of motion. Respiratory: Lungs clear, no respiratory distress. Chest: No accessory muscle use. Cardiovascular: Regular rate and rhythm, no murmurs. Gastrointestinal: Soft, nontender, nondistended. Bowels sounds present. Extremities: Normal range of motion, no deformity. Neurologic: Oriented x4. Psychiatric: Normal mood and affect. Skin: Normal color, warm and dry. No edema, no ecchymosis. Erythema left neck/shoulder surrounding ovoid bite or small abscess area. Progress Results/Orders Results/Orders Vital Signs 01/19/25 17:53 Temp 98.2 Pulse 80 Resp 16 B/P (MAP) 125/71 Pulse Ox 95 O2 Flow Rate 0 Medical Decision Making Findings This patient presents with initial presentation of local erythema, warmth, swelling the left ear and neck with an accompanying otitis media on the same side. Sensitivity/pain to light touch around the erythematous area. Possible mild lymphangitic spread visible and no fluid pockets or fluctuance concerning for abscess noted. Low concern for osteomyelitis or DVT. No immune compromise, b ullae, pain out of proportion, or rapid progression concerning for necrotizing fasciitis. Patient to be discharged home with Augmentin. Patient follow up with her primary care provider. Patient will return to the emergency department with any worsening or recurrent symptoms or any additional concerning symptoms that we discussed here today i.e. fever chills nausea vomiting increased redness increased swelling drainage from her ear increased lymphatic spread or any other concerning symptoms. Follow up with the patient tomorrow afternoon to check on her progress. Differential Dx:Considerations: Include: Abrasion, Allergic reaction, Anaphylaxis, Cellulitis, Contusion, Fracture, Hematoma, Insect envenomation, Laceration, Neurovascular injury, Punture wound, Retained foreign body, Urticaria Departure Disposition: HOME / SELF CARE / HOMELESS Impression: Primary Impression: Insect bites Additional Impression: Otitis media Condition: Stable Discharge Instructions: Insect Bite, Adult, [id number], Otitis Media, Adult Additional Instructions: This patient presents with initial presentation of local erythema, warmth, swelling the left ear and neck with an accompanying otitis media on the same si de. Sensitivity/pain to light touch around the erythematous area. Possible mild lymphangitic spread visible and no fluid pockets or fluctuance concerning for abscess noted. Low concern for osteomyelitis or DVT. No immune compromise, bullae, pain out of proportion, or rapid progression concerning for necrotizing fasciitis. Patient to be discharged home with Augmentin. Patient follow up with her primary care provider. Patient will return to the emergency department with any worsening or recurrent symptoms or any additional concerning symptoms that we discussed here today i.e. fever chills nausea vomiting increased redness increased swelling drainage from her ear increased lymphatic spread or any other concerning symptoms. I will follow up with the patient tomorrow afternoon to check on her progress. Ibuprofen as needed for discomfort. Please take your antibiotic until it is co mpleted. Please follow up with her primary care provider. Please return to the emergency department with any worsening or recurrent symptoms or any additional concerning symptoms that we discussed here today. Referrals: NO PRIMARY CARE PROVIDER (PCP) Prescriptions Amox Tr/Potassium Clavulanate (Augmentin 875-125 Tablet) 1 Each Tablet 1 TAB PO Q12H for 10 Days, #20 TAB Prov: LENNIE LYMAN 01/19/25 Education Educated: Patient Educated regarding: diagnosis, treatment, need for follow up Signature Scribe Signature: A Attestation: Scribed for Lennie Lyman by EDILIA Bazzi . 01/19/25 19:07 NADYA BARON NP Jan 19, 2025 17:57 LENNIE LYMAN Jan 19, 2025 19:05
[2025-01-19] MEDS ORDERED: AMOX-117 PO (19:06)
[2025-01-19] MEDS: amox tr/potassium clavulanate 875/125mg TAB PO ONE (19:21)
[2025-01-19 19:23] VITALS: BP 124/70; PULSE 79; RESP 18; TEMP 98.6; O2SAT 99
== END 2025-01-19 19:24 | disposition home or self-care (01) ==
LOC: ER 17:48
DX: S10.96XA Insect bite of unspecified part of neck, initial encounter (principal); H66.92 Otitis media, unspecified, left ear; Z88.0 Allergy status to penicillin; W57.XXXA Bitten or stung by nonvenomous insect and other nonvenomous arthropods, initial encounter; Y93.89 Activity, other specified; Y92.89 Other specified places as the place of occurrence of the external cause; Y99.8 Other external cause status
CPT/HCPCS: 99283